=== PATIENT | male | born 1975 | race Caucasian/White ===

== ENCOUNTER 2018-12-15 09:35 | Inpatient (IN) | payer OTHER ==
[~2018-12-15] VITALS: Ht 172.7 cm; Wt 79.4 kg
[~2018-12-15 09:35] MED LIST: CIPRO500 MG PO; CIPROFLOXACIN500 M1 PO; FLAGYL 250 MG250 MG GT; FLAGYL500 MG PO; HYDROCODONE-AP1 EAC6 PO; IBUPROFEN 600600 M1 PO; MIRALAX17 GM PO; NOHOMEMEDICATIONS; NORCO 5-325 TA1 EAC1 PO; NORCO 5-325 TA1 EACH PO; ONDANSETRON HCL4 M2 PO; PAXIL10 MG; PHENERGAN 25 MG25 M1 PO; PRILOSEC40 MG PO
[2018-12-15 09:38] VITALS: BP 150/97
[2018-12-15 10:11] LABS: HEMATOCRIT 53.9 % (42.0-52.0); HEMOGLOBIN 17.5 gm/dL (14.0-18.0); MCHC 32.4 g/dL (28.0-37.0); MCV 86.5 fL (80.0-100.0); MPV 8.9 fl. (7.2-11.1); NUCLEATED RBCS 0 /100WBC; PLATELET COUNT* 249 thou/uL (150-400); RBC 6.23 mil/uL (4.50-6.00); RDW-CV 14.5 % (10.5-14.5); WBC 12.2 thou/uL (4.0-11.0)
[2018-12-15 10:23] LABS: ALBUMIN 4.9 g/dL (3.4-5.0); CALCIUM 10.1 mg/dL (8.5-10.1); CREATININE 1.2 mg/dL (0.6-1.3); POTASSIUM 4.3 mmol/L (3.5-5.1); TOTAL BILIRUBIN 0.5 mg/dL (<0.1-1.0); TOTAL PROTEIN 9.7 g/dL (6.4-8.2)
[2018-12-15 10:29] LABS: ABSOLUTE LYMPHOCYTES 1.1 thou/uL (0.8-5.3); ABSOLUTE MONOCYTES 0.6 thou/uL (0.0-1.2); ABSOLUTE NEUTROPHILS 10.5 thou/uL (1.6-8.1); ATYPICAL LYMPHS 2 %; PLATELET ESTIMATE ADEQUATE
[2018-12-15 12:40] LABS: URINE BILIRUBIN NEGATIVE (Negative); URINE BLOOD 3+ (Negative); URINE COLOR YELLOW; URINE GLUCOSE-RANDOM NEGATIVE (Negative); URINE KETONES NEGATIVE (Negative); URINE LEUKOCYTES-REFLEX NEGATIVE (Negative); URINE NITRITE-REFLEX NEGATIVE (Negative); URINE PROTEIN NEGATIVE (Negative); URINE SPECIFIC GRAVITY <= 1.005 (1.005-1.030); URINE UROBILINOGEN 0.2 E.U./dl (0.2-1.0)
[2018-12-15 12:41] LABS: URINE CLARITY HAZY
[2018-12-15 13:00] LABS: BACTERIA-REFLEX 1-9 Few /HPF (None Seen); SQUAMOUS 0-3 Few /LPF (0-3); URINE RBC 3-10 Few /HPF (0-2); URINE WBC-REFLEX 0-5 Rare /HPF (0-5)
[2018-12-15 13:01] LABS: CASTS None Seen /LPF (None Seen); CRYSTALS None Seen /LPF (None Seen); MUCUS 4-6 Moderate strn/LPF (None Seen)
[2018-12-15 14:21] LABS: AMP/METHAMP POSITIVE (Negative); BARBITURATES Negative (Negative); BENZODIAZEPINES Negative (Negative); COCAINE Negative (Negative); METHADONE Negative (Negative); OPIATES Negative (Negative); PCP Negative (Negative); THC POSITIVE (Negative)
[2018-12-15 15:00] VITALS: BP 156/112
[2018-12-15 15:08] VITALS: BP 145/99
--- NOTE | 2018-12-15 15:14 | EKG ---
[place] [address] ELECTROCARDIOGRAM REPORT Name: NATALIE VANEGAS Room: [address] ADM IN .R.#: [id number] Admission: 12/15/18 Attend Phys: Mahendra Blue MD Discharge: Date of : 75 Report #: [id number] THIS REPORT FOR: //name// [facility] Test Date: 2018-12-15 Test Time: 09:57:16 Pat Name: NATALIE VANEGAS Department: Room: [facility] Gender: M Associate Software Development Engineer: : 1975 Requested By: Denys Langley Order Number: [id number] MD: Sourav Marquez Measurements Intervals [place] Rate: 106 P: 60 [place]: 180 QRS: 33 QRSD: 96 T: 42 QT: 364 QTc: 484 Interpretive Statements Sinus tachycardia Consider right atrial enlargement Probable left ventricular hypertrophy Borderline prolonged QT interval No previous ECG available for comparison Electronically Signed On 12-15-2018 15:13:45 CDT by Sourav Marquez [email or web address] <ELECTRONICALLY SIGNED> By: Sourav Marquez MD, [facility] 12/15/18 1513 0957 Sourav Marquez MD, FACC /EPI
[2018-12-15 17:11] VITALS: BP 132/85
[2018-12-15 20:00] VITALS: BP 136/79
== END 2018-12-16 02:47 | disposition left against medical advice (07) | DRG 389 ==
LOC: M.ERS 09:35 → M.TBA-ER 11:59 → M.ORTHSURG 14:09
PROVIDERS: Family Medicine; ADMIT Internal Medicine
DX: K56.609 Unspecified intestinal obstruction, unspecified as to partial versus complete obstruction (principal); R65.10 Systemic inflammatory response syndrome (SIRS) of non-infectious origin without acute organ dysfunction; E87.2 Acidosis; Z53.21 Procedure and treatment not carried out due to patient leaving prior to being seen by health care provider; F17.210 Nicotine dependence, cigarettes, uncomplicated; E86.0 Dehydration; F12.90 Cannabis use, unspecified, uncomplicated; K52.9 Noninfective gastroenteritis and colitis, unspecified; Z82.49 Family history of ischemic heart disease and other diseases of the circulatory system; Z79.899 Other long term (current) drug therapy

== ENCOUNTER 2019-09-10 06:06 | Emergency (ER) | payer OTHER ==
[~2019-09-10] VITALS: Ht 172.7 cm; Wt 86.2 kg
[2019-09-10 06:45] LABS: ABSOLUTE BASOPHILS 0.1 thou/uL (0.0-0.2); ABSOLUTE EOSINOPHILS 0.1 thou/uL (0.0-0.7); ABSOLUTE LYMPHOCYTES 1.7 thou/uL (0.8-5.3); ABSOLUTE MONOCYTES 0.9 thou/uL (0.0-1.2); ABSOLUTE NEUTROPHILS 9.3 thou/uL (1.6-8.1); BASOPHILS 0.5 %; EOSINOPHILS 0.5 %; HEMOGLOBIN 16.3 gm/dL (14.0-18.0); LYMPHOCYTES 13.9 %; MCH 28.1 pg (26.0-34.0); MCHC 33.3 g/dL (28.0-37.0); MCV 84.3 fL (80.0-100.0); MONOCYTES 7.8 %; MPV 8.9 fl. (7.2-11.1); NUCLEATED RBCS 0 /100WBC; PLATELET COUNT* 251 thou/uL (150-400); POLYS 77.3 %; RBC 5.81 mil/uL (4.50-6.00); RDW-CV 13.9 % (10.5-14.5); WBC 12.1 thou/uL (4.0-11.0)
[2019-09-10 06:49] LABS: URINE BILIRUBIN NEGATIVE (Negative); URINE BLOOD 3+ (Negative); URINE CLARITY CLEAR; URINE COLOR YELLOW; URINE GLUCOSE-RANDOM NEGATIVE (Negative); URINE KETONES NEGATIVE (Negative); URINE LEUKOCYTES-REFLEX NEGATIVE (Negative); URINE NITRITE-REFLEX NEGATIVE (Negative); URINE PROTEIN TRACE (Negative); URINE SPECIFIC GRAVITY >= 1.030 (1.005-1.030); URINE UROBILINOGEN 0.2 E.U./dl (0.2-1.0)
[2019-09-10 06:55] LABS: CALCIUM 9.1 mg/dL (8.5-10.1); CREATININE 1.1 mg/dL (0.6-1.3); POTASSIUM 4.8 mmol/L (3.5-5.1)
[2019-09-10 06:57] LABS: SQUAMOUS NONE SEEN /LPF (0-3); URINE RBC 3-10 Few /HPF (0-2)
[2019-09-10 06:59] LABS: BACTERIA-REFLEX 1-9 Few /HPF (None Seen); CASTS None Seen /LPF (None Seen); CRYSTALS None Seen /LPF (None Seen); MUCUS 0-3 Light strn/LPF (None Seen); URINE WBC-REFLEX None Seen /HPF (0-5)
[2019-09-10 07:01] LABS: ALBUMIN 4.3 g/dL (3.4-5.0); TOTAL BILIRUBIN 0.4 mg/dL (<0.1-1.0); TOTAL PROTEIN 8.6 g/dL (6.4-8.2)
[2019-09-10 07:07] LABS: AMP/METHAMP POSITIVE (Negative); BARBITURATES Negative (Negative); BENZODIAZEPINES Negative (Negative); COCAINE Negative (Negative); METHADONE Negative (Negative); OPIATES Negative (Negative); PCP Negative (Negative); THC Negative (Negative)
[2019-09-10] MEDS ORDERED: ZOFRAN ODT4 MG SUBLING (07:58)
[2019-09-10] MEDS ORDERED: CIPROFLOXACIN500 M1 PO (07:58)
[2019-09-10 08:14] VITALS: BP 138/91
== END 2019-09-10 08:16 | disposition home or self-care (01) ==
LOC: M.ERS 06:06
PROVIDERS: Emergency Medicine
DX: R10.33 Periumbilical pain (principal); R11.2 Nausea with vomiting, unspecified; R19.7 Diarrhea, unspecified

== ENCOUNTER 2021-08-05 23:09 | Emergency (ER) | payer OTHER ==
[~2021-08-05] VITALS: Ht 172.7 cm; Wt 79.4 kg
[~2021-08-05 23:09] MED LIST changes: +ZOFRAN ODT4 MG SUBLING
[2021-08-06 00:59] LABS: ABSOLUTE LYMPHOCYTES 1.2 thou/uL (0.8-5.3); ABSOLUTE MONOCYTES 0.4 thou/uL (0.0-1.2); ABSOLUTE NEUTROPHILS 4.1 thou/uL (1.6-8.1); BASOPHILS 0.3 %; EOSINOPHILS 0.8 %; HEMATOCRIT 43.4 % (42.0-52.0); HEMOGLOBIN 14.1 gm/dL (14.0-18.0); LYMPHOCYTES 21.2 %; MCH 28.1 pg (26.0-34.0); MCHC 32.5 g/dL (28.0-37.0); MCV 86.5 fL (80.0-100.0); MONOCYTES 6.2 %; MPV 9.3 fl. (7.2-11.1); NUCLEATED RBCS 0 /100WBC; PLATELET COUNT* 213 thou/uL (150-400); POLYS 71.5 %; RBC 5.01 mil/uL (4.50-6.00); RDW-CV 14.6 % (10.5-14.5); WBC 5.8 thou/uL (4.0-11.0)
[2021-08-06 01:12] LABS: CALCIUM 8.5 mg/dL (8.5-10.1); CREATININE 1.1 mg/dL (0.6-1.3); POTASSIUM 3.7 mmol/L (3.5-5.1)
[2021-08-06 01:14] LABS: APTT 27.3 Seconds (25.0-31.3); INR 1.1; PROTIME 11.2 Seconds (9.20-11.50)
[2021-08-06 01:22] LABS: ALBUMIN 3.4 g/dL (3.4-5.0); TOTAL BILIRUBIN 0.8 mg/dL (<0.1-1.0); TOTAL PROTEIN 7.1 g/dL (6.4-8.2)
[2021-08-06 02:38] LABS: URINE BILIRUBIN NEGATIVE (Negative); URINE BLOOD NEGATIVE (Negative); URINE CLARITY CLEAR; URINE COLOR YELLOW; URINE GLUCOSE-RANDOM NEGATIVE (Negative); URINE KETONES NEGATIVE (Negative); URINE LEUKOCYTES-REFLEX NEGATIVE (Negative); URINE NITRITE-REFLEX NEGATIVE (Negative); URINE PROTEIN NEGATIVE (Negative); URINE UROBILINOGEN 0.2 E.U./dl (0.2-1.0)
[2021-08-06 02:46] LABS: AMP/METHAMP POSITIVE (Negative); BARBITURATES Negative (Negative); BENZODIAZEPINES Negative (Negative); COCAINE Negative (Negative); METHADONE Negative (Negative); OPIATES Negative (Negative); PCP Negative (Negative); THC POSITIVE (Negative)
[2021-08-06 03:56] VITALS: BP 120/86
--- NOTE | 2021-08-06 09:08 | EKG ---
[place] [address] ELECTROCARDIOGRAM REPORT Name: VANEGASNATALIE Room: [facility]#: [id number] Admission: 08/05/21 Attend Phys: Discharge: 08/06/21 Date of : 75 Date of Service: 08/06/21 0107 Report #: [id number] THIS REPORT FOR: //name// [facility] ED Test Date: 2021-08-06 Test Time: 01:07:56 Pat Name: NATALIE VANEGAS Department: Room: Gender: Tube Man: GRANT : 1975 Requested By: Angelica Shaw Order Number: [id number] MD: Dakota Peres Measurements Intervals [place] Rate: 110 P: 56 [place]: 153 QRS: 2 QRSD: 92 T: 82 QT: 371 QTc: 503 Interpretive Statements Sinus tachycardia Probable left atrial enlargement Left ventricular hypertrophy Prolonged QT interval Compared to ECG 12/15/2018 09:57:16 No significant changes Electronically Signed On 08-06-2021 9:08:31 CDT by Dakota Peres [email or web address] <ELECTRONICALLY SIGNED> By: Dakota Peres MD, FACC 08/06/21 0908 6 6 Dakota Peres MD, FAC /EPI
== END 2021-08-06 03:58 | disposition left against medical advice (07) ==
LOC: M.ERS 23:09
PROVIDERS: Personal Emergency Response Attendant
DX: I50.9 Heart failure, unspecified (principal); Z20.822 Contact with and (suspected) exposure to COVID-19; F11.90 Opioid use, unspecified, uncomplicated; R06.02 Shortness of breath

== ENCOUNTER 2021-11-09 06:20 | Emergency (ER) | payer OTHER ==
[~2021-11-09] VITALS: Ht 172.7 cm; Wt 63.5 kg
[2021-11-09] MEDS ORDERED: LANTUS SUBQ (06:36)
[2021-11-09] MEDS ORDERED: CORLANOR5 MG PO (06:37)
[2021-11-09] MEDS ORDERED: FUROSEMIDE 40 M40 MG PO (06:37)
[2021-11-09] MEDS ORDERED: CARVEDILOL3.125 MG PO (06:37)
[2021-11-09] MEDS ORDERED: COZAAR 25 MG TA25 M1 PO (06:38)
[2021-11-09] MEDS ORDERED: METFORMIN HCL500 M3 PO (06:38)
[2021-11-09] MEDS ORDERED: SPIRONOLACTONE25 M1 PO (06:39)
[2021-11-09 07:52] LABS: HEMATOCRIT 41.5 % (42.0-52.0); HEMOGLOBIN 13.7 gm/dL (14.0-18.0); MCH 27.7 pg (26.0-34.0); MCHC 32.9 g/dL (28.0-37.0); MCV 84.1 fL (80.0-100.0); MPV 9.1 fl. (7.2-11.1); RBC 4.94 mil/uL (4.50-6.00); RDW-CV 15.5 % (10.5-14.5); WBC 7.2 thou/uL (4.0-11.0)
[2021-11-09 08:05] LABS: CALCIUM 9.1 mg/dL (8.5-10.1); CREATININE 1.1 mg/dL (0.6-1.3); POTASSIUM 3.8 mmol/L (3.5-5.1)
[2021-11-09 08:08] LABS: APTT 29.1 Seconds (25.0-31.3); INR 1.1; PROTIME 11.1 Seconds (9.20-11.50)
[2021-11-09 08:16] LABS: TOTAL BILIRUBIN 0.6 mg/dL (<0.1-1.0); TOTAL PROTEIN 8.1 g/dL (6.4-8.2)
[2021-11-09 08:37] LABS: SALICYLATE < 2.8 mg/dL (2.8-20.0)
[2021-11-09 08:40] LABS: ACETAMINOPHEN 2 ug/mL (10-30); ALCOHOL < 10 mg/dL (<10)
--- NOTE | 2021-11-09 12:16 | EKG ---
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: : 1975 Requested By: Angelica Shaw Order Number: [id number] MD: Dakota Peres Measurements Intervals [place] Rate: 104 P: 71 [place]: 156 QRS: 6 QRSD: 95 T: 74 QT: 385 QTc: 507 Interpretive Statements Sinus tachycardia Left atrial enlargement Left ventricular hypertrophy Prolonged QT interval Compared to ECG 08/06/2021 01:07:56 No significant changes Electronically Signed On 11-09-2021 12:15:50 JEWELLERY DESIGNER by Dakota Peres [email or web address] <ELECTRONICALLY SIGNED> By: Dakota Peres MD, [facility] 11/09/21 1215 0 Dakota Peres MD, [facility] /EPI
--- NOTE | 2021-11-09 12:17 | EKG ---
[place] [address] ELECTROCARDIOGRAM REPORT Name: NATALIE VANEGAS Room: [facility]#: [id number] Admission: 11/09/21 Attend Phys: Discharge: Date of : 75 Date of Service: 11/09/21 0844 Report #: [id number] THIS REPORT FOR: //name// [facility] ED Test Date: 2021-11-09 Test Time: 08:44:19 Pat Name: NATALIE VANEGAS Department: Room: Gender: Juice Scaleman: [place] : 1975 Requested By: Zayra Ramos Order Number: [id number] MD: Dakota Peres Measurements Intervals [place] Rate: 109 P: 68 [place]: 155 QRS: 12 QRSD: 92 T: 80 QT: 363 QTc: 489 Interpretive Statements Sinus tachycardia Left atrial enlargement Possible left ventricular hypertrophy Nonspecific T abnrm, anterolateral leads Borderline prolonged QT interval Compared to ECG 11/09/2021 06:31:41 No significant changes noted Electronically Signed On 11-09-2021 12:16:54 STEAM FLATTENER by Dakota Peres [email or web address] <ELECTRONICALLY SIGNED> By: Dakota Peres MD, FAC 11/09/21 1216 0844 0844 Dakota Peres MD, [facility] /EPI
[2021-11-09 14:30] VITALS: BP 114/82
== END 2021-11-09 14:30 | disposition still patient (30) ==
LOC: M.ERS 06:20
PROVIDERS: Personal Emergency Response Attendant
DX: R47.81 Slurred speech (principal); R60.0 Localized edema; R11.10 Vomiting, unspecified; F15.129 Other stimulant abuse with intoxication, unspecified; R29.810 Facial weakness; E11.9 Type 2 diabetes mellitus without complications; I10 Essential (primary) hypertension; I25.2 Old myocardial infarction; Z79.4 Long term (current) use of insulin; Z79.899 Other long term (current) drug therapy